=== PATIENT | male | born 1970 | race Caucasian/White ===

== ENCOUNTER → 2016-10-27 | Outpatient (CLI) | payer OTHER ==
--- NOTE | 2016-10-27 10:35 | RAD ---
Lumbar spine, 3 views, 10/27/2016: History: Back pain The lumbar vertebral heights are well-maintained. The intervertebral disc spaces are well preserved. There are mild scattered marginal spurs. No fracture or subluxation is evident. Aortic calcific plaquing is present. IMPRESSION: 1. Mild marginal spurring. 2. No acute abnormality is detected.
== END | disposition home or self-care (01) ==
LOC: RAD 08:48 → EDSEX 08:48
PROVIDERS: ATTEND Neuromusculoskeletal Medicine, Sports Medicine
DX: M54.9 Dorsalgia, unspecified (principal)
CPT/HCPCS: 72100